=== PATIENT | male | born 1995 | race Caucasian/White ===

== ENCOUNTER 2018-12-20 04:09 | Emergency (ER) | payer BC, MEDICAID ==
[~2018-12-20] VITALS: Ht 175.3 cm; Wt 55.6 kg
[2018-12-20] MEDS ORDERED: normal saline 1000ml 1,000 ML IV ONE (04:35)
[2018-12-20 07:15] VITALS: BP 106/61
== END 2018-12-20 07:34 | disposition home or self-care (01) ==
LOC: ER 04:09
DX: F19.920 Other psychoactive substance use, unspecified with intoxication, uncomplicated (principal); R41.82 Altered mental status, unspecified; F14.90 Cocaine use, unspecified, uncomplicated; Z90.49 Acquired absence of other specified parts of digestive tract
CPT/HCPCS: 93005; 96360; 99283; J7030